=== PATIENT | male | born 1965 | race Caucasian/White ===

== ENCOUNTER 2016-11-03 22:31 | Emergency (ER) | payer MEDICAID ==
[~2016-11-03] VITALS: Ht 175.3 cm; Wt 122.5 kg
[2016-11-04 01:40] VITALS: BP 183/103
== END 2016-11-04 02:33 | disposition home or self-care (01) ==
LOC: ER 22:41
DX: L08.9 Local infection of the skin and subcutaneous tissue, unspecified (principal); E11.9 Type 2 diabetes mellitus without complications; I10 Essential (primary) hypertension; Z88.0 Allergy status to penicillin; Z88.1 Allergy status to other antibiotic agents; W57.XXXA Bitten or stung by nonvenomous insect and other nonvenomous arthropods, initial encounter; Y93.89 Activity, other specified; Y99.8 Other external cause status; Y92.89 Other specified places as the place of occurrence of the external cause; Z88.6 Allergy status to analgesic agent

== ENCOUNTER → 2017-02-07 | Outpatient (CLI) | payer MEDICAID ==
[~2017-02-07] MED LIST: cloNIDine HCL 0.1 MG TAB ONE; cloNIDine HCL 0.1 MG TAB PO ONE
[2017-02-07 10:30] VITALS: BP 198/130
[2017-02-07 13:00] VITALS: BP 162/109
== END | disposition home or self-care (01) ==
LOC: CHF HDHVI 10:47
PROVIDERS: ATTEND Internal Medicine Cardiovascular Disease
DX: I11.0 Hypertensive heart disease with heart failure (principal); I50.9 Heart failure, unspecified; E66.9 Obesity, unspecified
CPT/HCPCS: G0463

== ENCOUNTER → 2017-02-28 | Outpatient (CLI) | payer MEDICAID ==
[~2017-02-28] VITALS: Ht 175.3 cm; Wt 121.1 kg
[~2017-02-28] MED LIST changes: +ADENOSINE 102 MG in GIVE UN-DILUTED 0 ML IV ONE; +ADENOSINE 90 MG/30 ML INJ IV ONE; -cloNIDine HCL 0.1 MG TAB ONE; -cloNIDine HCL 0.1 MG TAB PO ONE
== END | disposition home or self-care (01) ==
LOC: Rad HDHVI 11:08
PROVIDERS: ATTEND Internal Medicine Cardiovascular Disease
DX: I10 Essential (primary) hypertension (principal); G62.9 Polyneuropathy, unspecified; R48.0 Dyslexia and alexia; E11.9 Type 2 diabetes mellitus without complications; E78.5 Hyperlipidemia, unspecified; R63.8 Other symptoms and signs concerning food and fluid intake
CPT/HCPCS: 78452; 93005; 96374; 96375; A9500; J0153

== ENCOUNTER → 2017-03-05 | Outpatient (CLI) | payer MEDICAID | END | disposition home or self-care (01) | LOC: Rad HDHVI 13:03 | PROVIDERS: ATTEND Internal Medicine Cardiovascular Disease | DX: I10 Essential (primary) hypertension (principal); G62.9 Polyneuropathy, unspecified | CPT/HCPCS: 93306; 93926 ==